=== PATIENT | male | born 1985 ===

== ENCOUNTER 2018-03-12 12:32 | Emergency (ER) | payer SELFPAY ==
[2018-03-12] MEDS ORDERED: Bupivacaine 0.5% W/EPI SDV* 30 ML VIAL INJ ONE (12:56)
[2018-03-12] MEDS ORDERED: Ketorolac INJ* 30 MG/ML 1 ML VIAL IV PUSH ONE (12:56)
[2018-03-12] MEDS ORDERED: Clindamycin 900 MG/D5W BAG(*) 900 MG/50 ML BAG IVPB ONE (12:56)
[2018-03-12] MEDS ORDERED: Bupivacaine 0.5% W/EPI SDV* 30 ML VIAL ONE (12:58)
--- NOTE | 2018-03-12 12:58 | ED ---
Throat Pain/Nasal Congestion - HPI Summary HPI Summary: Pt is a 33 y/o male who presents to the ED c/o dental pain. This morning, left side of his face became red and swollen. Pt c/o 02/03 pain of his left upper first molar. Pt denies any fever. He is a smoker. Pt denies any DM or HTN. - History of Current Complaint Chief Complaint: EDDentalPain Time Seen by Provider: 03/12/18 12:47 Hx Obtained From: Patient Onset/Duration: Gradual Onset, Worse Since Severity: Severe - 02/03 Associated Signs And Symptoms: Positive: Negative Cough: None - Allergies/Home Medications Allergies/Adverse Reactions: Allergies Allergy/AdvReac Type Severity Reaction Status Date / Time No Known Allergies Allergy Verified 03/12/18 12:39 PMH/Surg Hx/FS Hx/Imm Hx Endocrine/Hematology History: Denies: Hx Diabetes Cardiovascular History: Denies: Hx Hypertension Infectious Disease History: No Infectious Disease History: Denies: Traveled Outside the [place] in Last 30 Days - Family History Known Family History: Negative: Blood Disorder - Social History Alcohol Use: None Hx Substance Use: Yes Substance Use Type: Reports: Marijuana Hx Tobacco Use: Yes Smoking Status (MU): Current Every Day Smoker Review of Systems Negative: Fever Positive: Dental Pain - Left upper molar All Other Systems Reviewed And Are Negative: Yes Physical Exam - Summary Physical Exam Summary: Appearance: Well appearing, no pain distress Skin: warm, dry, reflects adequate perfusion Head/face: induration throughout the left side of the face Eyes: EOMI, DAVID ENT: mucous membranes moist, right ear occluded with wax, area of fluctuance on the buccal surface of the gingiva adjacent to the first left upper molar Neck: supple, non-tender Respiratory: CTA, breath sounds present Cardiovascular: RRR, pulses symmetrical Abdomen: non-tender, soft Bowel Sounds: present Musculoskeletal: normal, strength/ROM intact Neuro: normal, sensory motor intact, A&Ox3 Triage Information Reviewed: Yes Vital Signs On Initial Exam: Initial Vitals Temp Pulse Resp BP Pulse Ox 98.2 F 84 18 134/77 97 03/12/18 12:36 03/12/18 12:36 03/12/18 12:36 03/12/18 12:36 03/12/18 12:36 Vital Signs Reviewed: Yes Procedures - Incision and Drainage Left Upper Jaw Site: Gingiva nearest Left upper first molar, buccal surface Anesthesia: Other - 2 cc .5% Bupivacaine Instrument(s): Needle - 18 gauge -- 12cc purulent material Diagnostics - Vital Signs Vital Signs Temp Pulse Resp BP Pulse Ox 03/12/18 12:36 98.2 F 84 18 134/77 97 - Laboratory Lab Statement: Any lab studies that have been ordered have been reviewed, and results considered in the medical decision making process. Re-Evaluation - Re-Evaluation First Eval Re-Evaluation Time: 14:12 Change: Improved Comment: Pt feels a lot better. EENT Course/Dx - Course Course Of Treatment: Large pointing abscess seen inside the mouth. This was drained and a large amount of purulence was produced. This decompressed is swelling significantly. His pain was greatly improved. He was given a dose of IV clindamycin here and will continue the to milk the purulence from the wound. Warm compresses and follow-up with dental. Continue clindamycin. - Differential Diagnoses Differential Diagnoses: Other - Oral abscess, sinusitis, preseptal cellulitis - Diagnoses Provider Diagnoses: Dental abscess, Dental caries Discharge - Sign-Out/Discharge Documenting (check all that apply): Patient Departure - Discharge - Discharge Plan Condition: Improved Disposition: HOME Prescriptions: Clindamycin Cap(NF) [Clindamycin Cap 300 mg Cap(NF)] 300 mg PO Q6H #28 cap Naproxen [Naproxen 500 mg tab] 500 mg PO BID PRN #12 tablet PRN Reason: Pain Patient Education Materials: Dental Abscess (ED) Referrals: Peña Mabry [Other] Additional Instructions: Warm compresses to the area. Milk the pus from the wound. Return with fever, increased swelling, redness around the eye, worse, new symptoms or other concerns. - Billing Disposition and Condition Condition: IMPROVED Disposition: Home - Attestation Statements Document Initiated by Scribe: Yes Documenting Scribe: Becca Ashton Provider For Whom Scribe is Documenting (Include Credential): Thanh Rubio MD Scribe Attestation: Becca Tinoco, scribed for Thanh Rubio MD on 03/12/18 at 1750. Scribe Documentation Reviewed: Yes Provider Attestation: The documentation as recorded by the Becca biggs accurately reflects the service I personally performed and the decisions made by me, Thanh Rubio MD
[2018-03-12 14:35] VITALS: BP 133/71
== END 2018-03-12 14:34 | disposition home or self-care (01) ==
LOC: ED 12:32
DX: K04.7 Periapical abscess without sinus (principal); K02.9 Dental caries, unspecified; F17.200 Nicotine dependence, unspecified, uncomplicated
CPT/HCPCS: 87070; 87076; 96374; 99282; J1885